=== PATIENT | female | born 1995 | race Two or more races ===

== ENCOUNTER 2024-01-29 00:39 | Outpatient (CLI) | payer OTHER ==
[~2024-01-29] VITALS: Ht 165.1 cm; Wt 77.1 kg
[~2024-01-29 00:39] MED LIST: ANALPRAM HC 1%30 GM TOP; MIRALAX510 GM PO
[2024-01-29 00:45] VITALS: BP 127/71
[2024-01-29] MEDS ORDERED: VALTREX1000 MG PO (00:45)
[2024-01-29] MEDS ORDERED: PRENATAL CAPLE1 EAC1 PO (00:45)
[2024-01-29] MEDS ORDERED: RINGERS SOLUTION,LACTATED 1,000 ML IV SCH (01:00)
[2024-01-29] MEDS ORDERED: AMPICILLIN SODIUM 2,000 MG VIAL IV STA (01:23)
[2024-01-29 01:43] LABS: HEMATOCRIT 30.7 % (36.0-45.00); HEMOGLOBIN 10.2 g/dL (12.0-15.00); MEAN CELL VOLUME 79.1 fL (80.00-100.00); MEAN CORPUSCULAR HEMOGLOBIN 26.2 pg (27.00-32.0); MEAN CORPUSCULAR HGB CONC 33.2 g/dl (32.0-36.0); PLATELET COUNT 247 K/uL (150-450); RED BLOOD COUNT 3.88 M/uL (4.00-6.00); RED CELL DISTRIBUTION WIDTH 15.9 % (11.5-14.5)
[2024-01-29 02:06] LABS: INR 0.97; PARTIAL THROMBOPLASTIN TIME 25.1 SECONDS (22.0-34.0); PROTHROMBIN TIME 10.6 SECONDS (9.0-11.5)
[2024-01-29 02:11] LABS: ALBUMIN 2.6 gm/dL (3.4-5.0); BILIRUBIN TOTAL 0.51 mg/dL (0.3-1.2); CALCIUM 9.3 mg/dL (8.5-10.1); CREATININE SERUM 0.45 mg/dL (0.55-1.02); GFR 168.42; GLOBULINA 3.6 G/DL (2.4-3.5); POTASSIUM 4.22 mEq/L (3.5-5.1); TOTAL PROTEIN 6.2 gm/dL (6.4-8.2)
[2024-01-29 03:52] VITALS: BP 120/59
[2024-01-29] MEDS ORDERED: AMPICILLIN SODIUM 1,000 MG VIAL IV SCH (05:00)
[2024-01-29 07:36] VITALS: BP 105/54
== END 2024-01-29 07:29 | disposition home or self-care (01) ==
LOC: LDR 00:39 → OBS/DEL 00:39 → LDR 07:29 → OBS/DEL 07:29 → EDSTATUS 01-30 08:47
PROVIDERS: ATTEND Obstetrics & Gynecology Maternal & Fetal Medicine
DX: O47.1 False labor at or after 37 completed weeks of gestation (principal); Z3A.37 37 weeks gestation of pregnancy; Z88.3 Allergy status to other anti-infective agents

== ENCOUNTER 2024-02-05 11:41 | Outpatient (CLI) | payer OTHER ==
[~2024-02-05 11:41] MED LIST changes: +PRENATAL CAPLE1 EAC1 PO; +VALTREX1000 MG PO
== END 2024-02-05 12:46 | disposition home or self-care (01) ==
LOC: NST 11:41
PROVIDERS: ATTEND Obstetrics & Gynecology Maternal & Fetal Medicine
DX: Z34.83 Encounter for supervision of other normal pregnancy, third trimester (principal)

== ENCOUNTER 2024-02-11 13:30 | Inpatient (IN) | payer OTHER ==
[~2024-02-11] VITALS: Ht 165.1 cm; Wt 78.0 kg
[2024-02-18] VITALS (10 sets, daily range): BP systolic 106–148; BP diastolic 69–89
[2024-02-18] MEDS ORDERED: AMPICILLIN SODIUM 2,000 MG VIAL IV ONE (07:00)
[2024-02-18] MEDS ORDERED: RINGERS SOLUTION,LACTATED 1,000 ML IV SCH (07:00)
[2024-02-18 07:42] LABS: HEMATOCRIT 30.1 % (36.0-45.00); HEMOGLOBIN 9.7 g/dL (12.0-15.00); MEAN CELL VOLUME 78.2 fL (80.00-100.00); MEAN CORPUSCULAR HEMOGLOBIN 25.3 pg (27.00-32.0); MEAN CORPUSCULAR HGB CONC 32.4 g/dl (32.0-36.0); PLATELET COUNT 260 K/uL (150-450); RED BLOOD COUNT 3.85 M/uL (4.00-6.00); RED CELL DISTRIBUTION WIDTH 16.3 % (11.5-14.5)
[2024-02-18 07:51] LABS: URINE APPEARANCE Turbid; URINE BILIRRUBIN Negative (NEGATIVE); URINE BLOOD Large; URINE COLOR Yellow; URINE GLUCOSE Negative (NEGATIVE); URINE KETONE Negative (NEGATIVE); URINE LEUKOCYTE Trace; URINE NITRATE Negative; URINE PROTEIN 30 (NEGATIVE); URINE UROBILINOGEN 0.2 E.U./dl
[2024-02-18] MEDS ORDERED: AMPICILLIN SODIUM 1,000 MG VIAL IV SCH (08:00)
[2024-02-18 08:08] LABS: INR 0.98; PARTIAL THROMBOPLASTIN TIME 24.2 SECONDS (22.0-34.0); PROTHROMBIN TIME 10.7 SECONDS (9.0-11.5)
[2024-02-18] MEDS ORDERED: OXYTOCIN 500 ML IV SCH (08:15)
[2024-02-18] MEDS ORDERED: MORPHINE SULFATE 4 MG/ML CARTRIDGE IV PRN (08:15)
[2024-02-18 08:16] LABS: URINE BACTERIA 7.3 uL (0.0-1933); URINE RBC 11.1 uL (0.0-20.8); URINE WBC 8.3 uL (0.0-23.2)
[2024-02-18 08:18] LABS: URINE EPITHELIAL CELLS 0.4 uL (0.0-38.8)
[2024-02-18 09:06] LABS: ALBUMIN 2.6 gm/dL (3.4-5.0); BILIRUBIN TOTAL 0.65 mg/dL (0.3-1.2); CALCIUM 8.7 mg/dL (8.5-10.1); CREATININE SERUM 0.49 mg/dL (0.55-1.02); GFR 152.66; GLOBULINA 3.4 G/DL (2.4-3.5); POTASSIUM 4.37 mEq/L (3.5-5.1)
[2024-02-18] MEDS ORDERED: ERYTHROMYCIN BASE OPHT 1GM EACH TUBE OP ONE (11:20)
[2024-02-18] MEDS ORDERED: CHLORHEXIDINE GLUCONATE 120 ML BOTTLE TOP ONE (11:25)
[2024-02-18] MEDS ORDERED: LIDOCAINE HCL 1% 10ML VIAL IJ ONE (11:30)
[2024-02-18] MEDS ORDERED: CHLORHEXIDINE GLUCONATE 120 ML BOTTLE TOP SCH (12:00)
[2024-02-18] MEDS ORDERED: IBUprofen 400 MG TABLET PO PRN (12:00)
[2024-02-18] MEDS ORDERED: OXYTOCIN 1,000 ML IV SCH (12:00)
[2024-02-18] MEDS ORDERED: DOCUSATE SODIUM 100MG CAP PO SCH (17:00)
[2024-02-19 00:57] VITALS: BP 106/66
[2024-02-19 06:41] LABS: HEMATOCRIT 25.6 % (36.0-45.00); MEAN CELL VOLUME 77.1 fL (80.00-100.00); MEAN CORPUSCULAR HEMOGLOBIN 25.6 pg (27.00-32.0); MEAN CORPUSCULAR HGB CONC 33.3 g/dl (32.0-36.0); PLATELET COUNT 268 K/uL (150-450); RED BLOOD COUNT 3.32 M/uL (4.00-6.00); RED CELL DISTRIBUTION WIDTH 16.3 % (11.5-14.5)
[2024-02-19 06:49] LABS: HEMOGLOBIN 8.5 g/dL (12.0-15.00)
[2024-02-19 08:04] VITALS: BP 115/73
[2024-02-19 08:05] VITALS: BP 115/73
[2024-02-19] MEDS ORDERED: PNV,CALCIUM 72/IRON/FOLIC ACID 1 TAB TABLET PO SCH (09:00)
[2024-02-19 15:47] VITALS: BP 128/67
[2024-02-20 00:39] VITALS: BP 114/75
[2024-02-20 08:04] VITALS: BP 116/66
== END 2024-02-20 12:03 | disposition home or self-care (01) | DRG 807 ==
LOC: LDR 02-18 06:05 → OB/GYN 02-18 06:05
PROVIDERS: Obstetrics & Gynecology Gynecology; ADMIT Obstetrics & Gynecology Maternal & Fetal Medicine; ATTEND Obstetrics & Gynecology Maternal & Fetal Medicine
PROC: 10E0XZZ Delivery of Products of Conception, External Approach (ICD-10-PCS; principal; 2024-02-18)
PROC: 0KQM0ZZ Repair Perineum Muscle, Open Approach (ICD-10-PCS; 2024-02-18)
PROC: 4A1HXCZ Monitoring of Products of Conception, Cardiac Rate, External Approach (ICD-10-PCS; 2024-02-18)
PROC: 0HQ9XZZ Repair Perineum Skin, External Approach (ICD-10-PCS; 2024-02-18)
PROC: 0UQMXZZ Repair Vulva, External Approach (ICD-10-PCS; 2024-02-18)
DX: O70.0 First degree perineal laceration during delivery (principal); O70.1 Second degree perineal laceration during delivery; O71.82 Other specified trauma to perineum and vulva; O69.81X0 Labor and delivery complicated by cord around neck, without compression, not applicable or unspecified; O99.824 Streptococcus B carrier state complicating childbirth; Z37.0 Single live birth; Z3A.39 39 weeks gestation of pregnancy; Z20.822 Contact with and (suspected) exposure to COVID-19